=== PATIENT | male | born 1980 | race American Indian/Alaskan Native ===

== ENCOUNTER 2017-08-28 14:29 | Emergency (ER) | payer OTHER ==
[2017-08-28] MEDS ORDERED: NACL 0.9% 1000 ML 1,000 ML IV ONE (15:15)
[2017-08-28 16:17] LABS: Basophils % (Auto) 0.9 % (0.0-1.8); Eosinophils # (Auto) 0.1 K/mm3 (0.0-0.4); Eosinophils % (Auto) 1.9 % (0.0-4.3); Hematocrit 46.7 % (35.5-45.6); Hemoglobin 15.3 gm/dl (11.8-15.2); Lymphocytes # (Auto) 1.5 K/mm3 (1.2-5.4); Lymphocytes % (Auto) 29.9 % (13.4-35.0); Mean Corpuscular HGB Conc 33 % (32-34); Mean Corpuscular Hemoglobin 29 pg (28-32); Mean Corpuscular Volume 88 fl (84-94); Monocytes # (Auto) 0.5 K/mm3 (0.0-0.8); Monocytes % (Auto) 9.3 % (0.0-7.3); Platelet Count 236 K/mm3 (140-440); Red Blood Count 5.29 M/mm3 (3.65-5.03); Red Cell Distribution Width 14.3 % (13.2-15.2)
[2017-08-28 16:28] LABS: INR 1.01 (0.87-1.13); Partial Thromboplastin Time 34.3 Sec. (24.2-36.6)
[2017-08-28 16:42] LABS: Alanine Aminotransferase 39 units/L (7-56); Albumin 4.9 g/dL (3.9-5); BUN/Creatinine Ratio 11; Blood Urea Nitrogen 11 mg/dL (9-20); Calcium 9.2 mg/dL (8.4-10.2); Hemolysis Index 0; Lipase 23 units/L (13-60)
[2017-08-29] MEDS ORDERED: ZOFRAN IV ONE (00:07)
[2017-08-29] MEDS ORDERED: NACL 0.9% 1000 ML 1,000 ML IV ONE (00:07)
[2017-08-29] MEDS ORDERED: PROTONIX IV ONE (00:32)
--- NOTE | 2017-08-29 01:31 | Emergency Department Report ---
ED GI Bleed HPI - General Chief complaint: GI Bleed Stated complaint: VOMITING BLOOD Time Seen by Provider: 08/29/17 00:06 Source: patient Mode of arrival: Ambulatory Limitations: No Limitations - History of Present Illness Initial comments: Patient was brushing his teeth at 11:30 am yesterday with a white toothpaste when he began to vomit bright red blood. He has not had another episode since then. He does state that he has had some epigastric pain that has been intermittent. MD complaint: gross hematemesis -: Sudden (11:30 am x 1) - Related Data Home Medications Medication Instructions Recorded Confirmed Last Taken No Known Home Medications [No 06/08/16 08/28/17 Unknown Reported Home Medications] Allergies Allergy/AdvReac Type Severity Reaction Status Date / Time No Known Allergies Allergy Unverified 08/12/13 14:51 ED Review of Systems ROS: Stated complaint: VOMITING BLOOD Other details as noted in HPI Comment: All other systems reviewed and negative Constitutional: denies: chills, fever Eyes: denies: eye pain, eye discharge, vision change ENT: denies: ear pain, throat pain Respiratory: denies: cough, shortness of breath, wheezing Cardiovascular: denies: chest pain, palpitations Endocrine: no symptoms reported Gastrointestinal: denies: abdominal pain, nausea, diarrhea Genitourinary: denies: urgency, dysuria Musculoskeletal: denies: back pain, joint swelling, arthralgia Skin: denies: rash, lesions Neurological: denies: headache, weakness, paresthesias Psychiatric: denies: anxiety, depression Hematological/Lymphatic: denies: easy bleeding, easy bruising ED Past Medical Hx - Past Medical History Previous Medical History?: No - Surgical History Additional Surgical History: right arm surgery - Social History Smoking Status: Current Every Day Smoker Substance Use Type: None - Medications Home Medications: Home Medications Medication Instructions Recorded Confirmed Last Taken Type No Known Home Medications [No 06/08/16 08/28/17 Unknown History Reported Home Medications] ED Physical Exam - General Limitations: No Limitations General appearance: alert, in no apparent distress - Head Head exam: Present: atraumatic, normocephalic - Eye Eye exam: Present: normal appearance - ENT ENT exam: Present: mucous membranes moist - Neck Neck exam: Present: normal inspection - Respiratory Respiratory exam: Present: normal lung sounds bilaterally. Absent: respiratory distress - Cardiovascular Cardiovascular Exam: Present: regular rate, normal rhythm. Absent: systolic murmur, diastolic murmur, rubs, gallop - GI/Abdominal GI/Abdominal exam: Present: soft, tenderness (mid epigastric), normal bowel sounds - Rectal Rectal exam: Present: deferred - Extremities Exam Extremities exam: Present: normal inspection - Back Exam Back exam: Present: normal inspection - Neurological Exam Neurological exam: Present: alert, oriented X3 - Psychiatric Psychiatric exam: Present: normal affect, normal mood - Skin Skin exam: Present: warm, dry, intact, normal color. Absent: rash ED Course Vital Signs 08/28/17 08/28/17 08/28/17 15:12 23:03 23:10 Temperature 98.3 F Pulse Rate 74 Respiratory 18 7 L 16 Rate Blood Pressure 124/84 O2 Sat by Pulse 100 99 Oximetry 08/28/17 08/29/17 08/29/17 23:15 00:01 01:01 Temperature Pulse Rate 62 58 L 60 Respiratory 15 11 L 16 Rate Blood Pressure 130/84 130/84 130/84 O2 Sat by Pulse 98 100 98 Oximetry - Reevaluation(s) Reevaluation #1: 08/29/17 01:52 Hemoocult stool is negative. ED Medical Decision Making - Lab Data Result diagrams: 08/28/17 15:22 08/28/17 15:22 - Radiology Data Patient medically stable. Hematemesis or Bleeding Ulcer Critical Care Time: No Critical care attestation.: If time is entered above; I have spent that time in minutes in the direct care of this critically ill patient, excluding procedure time. ED Disposition Clinical Impression: GIB (gastrointestinal bleeding) Disposition: TO HOME OR SELFCARE Is pt being admited?: No Does the pt Need Aspirin: No Condition: Stable Referrals: PRIMARY CARE,MD [Primary Care Provider] - 3-5 Days Forms: Accompanied Note
--- NOTE | 2017-08-29 03:57 | Cat Scan Report ---
FINAL REPORT EXAM: CT ABDOMEN PELVIS W CON HISTORY: GI Bleed COMPARISON: None available. TECHNIQUE: Contiguous axial images were obtained. Additional sagittal and coronal reformatted images were obtained. Administration of IV contrast given per institution protocol. Images submitted for interpretation. 100 cc Omnipaque [id number]. FINDINGS: Lung bases are clear. Diffuse fatty infiltration of the liver. No calcified gallstones or biliary dilatation. Spleen and pancreas are grossly unremarkable. No adrenal mass. No solid renal lesion or hydronephrosis. Aorta and IVC normal in caliber. Urinary bladder and prostate gland are grossly unremarkable. No free fluid or lymphadenopathy. The appendix is gas-filled and normal in caliber. Mild wall thickening of the distal descending colon and sigmoid colon concerning for segmental colitis given the patient's history. Remaining bowel loops normal in caliber. No free air pneumatosis. No bowel obstruction. Mild diverticulosis of the colon. No diverticulitis. Bony pelvis and lumbar spine are grossly intact. IMPRESSION: Mild wall thickening of the distal descending colon and sigmoid colon concerning for segmental colitis. This is likely inflammatory infectious in etiology. Remaining bowel loops normal in caliber. No bowel obstruction. The appendix is normal in caliber. Mild diverticulosis of left colon. No diverticulitis. No other acute findings.
[2017-08-29 06:33] VITALS: BP 115/68
== END 2017-08-29 07:05 | disposition home or self-care (01) ==
LOC: ED 14:29
DX: K92.2 Gastrointestinal hemorrhage, unspecified (principal); F17.200 Nicotine dependence, unspecified, uncomplicated
CPT/HCPCS: 36415; 74177; 80053; 82140; 82271; 83690; 85025; 85610; 85730; 86850; 86900; 86901; 93005; 93010; 96361; 96374; 96375; 99284; C9113; J2405; J7030; Q9967